=== PATIENT | female | born 1990 | race Caucasian/White ===

== ENCOUNTER 2018-09-21 10:30 | Emergency (ER) | payer OTHER ==
[~2018-09-21] VITALS: Ht 152.4 cm; Wt 80.3 kg
[2018-09-21 10:33] VITALS: Ht 152.4 cm; Wt 80.3 kg
[2018-09-21 12:10] VITALS: BP 126/71
== END 2018-09-21 12:10 | disposition home or self-care (01) ==
LOC: ED 10:30
DX: J03.90 Acute tonsillitis, unspecified (principal); H92.03 Otalgia, bilateral; Z90.49 Acquired absence of other specified parts of digestive tract; Z88.6 Allergy status to analgesic agent